=== PATIENT | female | born 1940 | race Caucasian/White ===

== ENCOUNTER 2021-11-18 11:25 | Emergency (ER) | payer MEDICARE, BC, SELFPAY ==
[2021-11-18 11:39] VITALS: BP 137/98; PULSE 77; RESP 16; TEMP 36.7; O2SAT 98
--- NOTE | 2021-11-18 12:00 | ED.EAR ---
HPI - Ear Problem General Chief complaint: Ear Stated complaint: rahel ear clogged Time Seen by Provider: 11/18/21 12:00 Source: patient Mode of arrival: ambulatory Limitations: no limitations History of Present Illness HPI Narrative: 81-year-old female presented for complaint of vertigo for 3 weeks, states it only occurs when she rolls in bed. She endorses she has chronic cerumen impaction and history of vertigo which occurs when she needs the earwax removed. She states she has her earwax removed about every 3 to 4 months by her PCP. She is visiting from [place] at this time. She currently denies any vertigo, vision changes, nausea, vomiting. MD Complaint: ear pain Related Data Home Medications Medication Instructions Recorded Confirmed dapagliflozin 5 mg tablet (Farxiga) 5 mg PO DAILY 11/18/21 11/18/21 hydrochlorothiazide 25 mg tablet 25 mg PO DAILY 11/18/21 11/18/21 latanoprost 0.005 % eye drops 1 drp EACH EYE DAILY 11/18/21 11/18/21 levothyroxine 200 mcg tablet 200 mcg PO DAILY 11/18/21 11/18/21 losartan 100 mg tablet 100 mg PO DAILY 11/18/21 11/18/21 sertraline 50 mg tablet 50 mg PO DAILY 11/18/21 11/18/21 Allergies Allergy/AdvReac Type Severity Reaction Status Date / Time No Known Allergies Allergy Verified 11/18/21 11:56 Review of Systems Review of Systems: CONSTITUTIONAL: Denies malaise, chills, or fever. EYES: Denies visual changes, redness, or discharge. ENT: Denies rhinorrhea, congestion, sinus pain, and sore throat. CARDIOVASCULAR: Denies chest pain, palpitations, or edema. RESPIRATORY: Denies cough or dyspnea. GASTROINTESTINAL: Denies abdominal pain, nausea, vomiting, diarrhea SKIN: Denies rash or itching. MUSCULOSKELETAL: Denies myalgia. NEUROLOGIC: Denies headache. All systems reviewed & are unremarkable except as noted in HPI and below PMFSH Comments At time of signature, agree with nursing past medical, surgical, social and family history. There is no relevant family history pertinent to the presenting complaint Exam Narrative: GENERAL: Well-appearing, well-nourished HEAD: Normocephalic EYES: conjunctivae clear ENT: Nares clear. Mucous membranes moist. Right TM unable to visualize due to cerumen impaction; Left TM pearly madera with normal light reflex, narrow canal; no tragal tenderness. Oropharynx not erythematous without lesions NECK: Supple. No lymphadenopathy CHEST: Clear to auscultation, breath sounds equal. HEART: Regular rate and rhythm. No murmur heard. SKIN: Warm, dry, no rash. NEURO: Alert and oriented x3. PSYCH: Normal mood and affect Course Course Emergency Course: Patient is aware of diagnosis, understands and agrees to treatment plan. Anticipatory guidance given. Patient agrees to follow-up as directed and is aware of reasons to seek care at the emergency department. Portions of this record may have been created with voice recognition software Level of Care: Express Care Visit Vital Signs Vital signs: Vital Signs Temperature 98.0 F 11/18/21 11:39 Pulse Rate 77 11/18/21 11:39 Respiratory Rate 16 11/18/21 11:39 Blood Pressure 137/98 H 11/18/21 11:39 Pulse Oximetry 98 11/18/21 11:39 Oxygen Delivery Room Air 11/18/21 11:39 Temperature 98.0 F 11/18/21 11:39 Pulse Rate 77 11/18/21 11:39 Respiratory Rate 16 11/18/21 11:39 Blood Pressure 137/98 H 11/18/21 11:39 Pulse Oximetry 98 11/18/21 11:39 Oxygen Delivery Room Air 11/18/21 11:39 Reviewed Procedures Ear Wax Removal Right Ear: Ear Wax Removal Date: 11/18/21 Cerumenolytic Used: other (Warm water and hydrogen peroxide) Results: Re-examined: cerumen removed completely TM Examination: TM(s) intact, normal appearance Ear Canal Exam: atraumatic Patient Tolerated Procedure: well and no complications Technique: ear canal irrigated and ear canal curetted Medical Decision Making MDM Narrative Medical decision making narrative: Patient
== END 2021-11-18 12:13 | disposition home or self-care (01) ==
PROVIDERS: Emergency Provider Nurse Practitioner Family
DX: H61.21 Impacted cerumen, right ear (principal); I10 Essential (primary) hypertension; E11.9 Type 2 diabetes mellitus without complications; E03.9 Hypothyroidism, unspecified; F32.A Depression, unspecified
CPT/HCPCS: 69210; 99202; G0463

== ENCOUNTER 2023-04-20 08:04 | Emergency (ER) | payer MEDICARE, BC, SELFPAY ==
--- NOTE | 2023-04-20 08:12 | ED.URI ---
HPI - URI/Sore Throat General Chief Complaint: Upper Respiratory Infection Stated Complaint: Sinus Time Seen by Provider: 04/20/23 08:20 Source: patient and RN notes reviewed Mode of arrival: ambulatory Limitations: no limitations History of Present Illness HPI Narrative: 82-year-old female presents with concern for cough, sinus drainage. She reports started on Monday, she was recently at a wedding. She reports some transient sweats, feeling feverish earlier in the week. She reports her sister has similar symptoms. She is traveling from out of [facility]. MD elicited complaint: cough Related Data Home Medications Medication Instructions Recorded Confirmed hydrochlorothiazide 25 mg tablet 25 mg PO DAILY 11/18/21 04/20/23 latanoprost 0.005 % eye drops 1 drp EACH EYE DAILY 11/18/21 04/20/23 levothyroxine 200 mcg tablet 200 mcg PO DAILY 11/18/21 04/20/23 losartan 100 mg tablet 100 mg PO DAILY 11/18/21 04/20/23 sertraline 50 mg tablet 50 mg PO DAILY 11/18/21 04/20/23 Allergies Allergy/AdvReac Type Severity Reaction Status Date / Time No Known Allergies Allergy Verified 04/20/23 08:15 Review of Systems Review of Systems: CONSTITUTIONAL: Reports malaise, chills, sweats EYES: Denies visual changes, redness, or discharge. ENT: Reports rhinorrhea. Denies congestion, sinus pain, otalgia and sore throat. CARDIOVASCULAR: Denies chest pain, palpitations, or edema. RESPIRATORY: Reports cough. Denies dyspnea. GASTROINTESTINAL: Denies abdominal pain, nausea, vomiting, diarrhea SKIN: Denies rash or itching. MUSCULOSKELETAL: Denies myalgia. NEUROLOGIC: Denies headache. All systems reviewed & are unremarkable except as noted in HPI and below PMFSH Comments At time of signature, agree with nursing past medical, surgical, social and family history. There is no relevant family history pertinent to the presenting complaint Exam Narrative: GENERAL: Well-appearing, well-nourished, and in no acute distress. HEAD: Normocephalic EYES: PERRLA, conjunctivae clear ENT: Nares clear, turbinates edematous and erythematous, clear discharge. Mucous membranes moist. TM pearly madera with dull light reflex bilaterally; no tragal tenderness. Oropharynx not erythematous without lesions. Tonsils not enlarged and without exudate, no drooling, no hoarseness, no trismus, uvula midline. NECK: Supple. No lymphadenopathy CHEST: Clear to auscultation, breath sounds equal. No wheezing, rhonchi, rales, or stridor. No respiratory distress, speaks in full sentences. HEART: Regular rate and rhythm. No murmur heard. SKIN: Warm, dry, no rash. NEURO: Alert and oriented x3. PSYCH: Normal mood and affect Course Course Emergency Course: Patient is aware of diagnosis, understands and agrees to treatment plan. Anticipatory guidance given. Patient agrees to follow-up as directed and is aware of reasons to seek care at the emergency department. Portions of this record may have been created with voice recognition software Level of Care: Express Care Visit Vital Signs Vital signs: Reviewed. MDM - URI/Sore Throat MDM Narrative Medical decision making narrative: Differential diagnosis considered: Uri[place]ui virus, strep pharyngitis, allergic rhinitis, upper respiratory tract infection, sinusitis, rhinosinusitis, nasopharyngitis. viral pharyngitis, otitis media, otitis externa, pneumonia, bronchitis, viral cough syndrome, viral syndrome, and influenza. Exam findings show no acute concerns or changes; patient is non-toxic appearing and is in no distress. Patient is appropriate for outpatient treatment and follow-up. Lab Data Attestation: I reviewed the patient's lab results. Critical Care Time Critical Care Time Critical Care Time: No Discharge Plan Discharge Clinical Impression: COVID Patient Disposition: Home, Self-Care Condition: Stable Instructions: How to Recover from COVID-19 at Home (ED) Additional Instructions: Your rapid COVID test is posi
[2023-04-20 08:17] VITALS: BP 118/103; PULSE 77; RESP 16; TEMP 37.1; O2SAT 99
== END 2023-04-20 08:57 | disposition home or self-care (01) ==
PROVIDERS: Emergency Provider Nurse Practitioner
DX: U07.1 COVID-19 (principal); I10 Essential (primary) hypertension; E11.9 Type 2 diabetes mellitus without complications; E03.9 Hypothyroidism, unspecified; F32.A Depression, unspecified
CPT/HCPCS: 87426; 99213; C9803; G0463

== ENCOUNTER 2025-02-10 08:09 | Emergency (ER) | payer MEDICARE, BC, SELFPAY ==
[2025-02-10 08:20] VITALS: BP 163/71; PULSE 68; RESP 20; TEMP 36.6; O2SAT 95
--- NOTE | 2025-02-10 08:20 | ED.WOUNDLAC ---
HPI - Wound/Laceration General Chief Complaint: Skin/Abscess/Foreign Body Stated Complaint: tick on right side Time Seen by Provider: 02/10/25 08:25 Source: patient Mode of arrival: ambulatory Limitations: no limitations History of Present Illness HPI narrative: 84 y/o female presented for c/o possible tick bite to right abdomen. First noticed a black spot to the right upper abdomen 2 days ago. States she and her family attempted to remove it without success. Says [place] noticing it. Denies streaking, itching, pain, or drainage from the site. Related Data Home Medications ?Medication ?Instructions ?Recorded ?Confirmed ?Last Taken ?Type hydrochlorothiazide 25 mg tablet 25 mg PO DAILY 11/18/21 04/20/23 Unknown History latanoprost 0.005 % eye drops 1 drp EACH EYE DAILY 11/18/21 04/20/23 Unknown History levothyroxine 200 mcg tablet 200 mcg PO DAILY 11/18/21 04/20/23 Unknown History losartan 100 mg tablet 100 mg PO DAILY 11/18/21 04/20/23 Unknown History sertraline 50 mg tablet 50 mg PO DAILY 11/18/21 04/20/23 Unknown History Allergies Allergy/AdvReac Type Severity Reaction Status Date / Time No Known Allergies Allergy Verified 02/10/25 08:37 Review of Systems Review of Systems: CONSTITUTIONAL: Denies body aches, fever, chills, or sweats. EYES: Denies visual changes, redness, or discharge. ENT: Denies rhinorrhea, congestion CARDIOVASCULAR: Denies chest pain, palpitations, or edema. RESPIRATORY: Denies cough or dyspnea. GASTROINTESTINAL: Denies abdominal pain, nausea, vomiting, or diarrhea. SKIN: reports skin lesion right abdomen MUSCULOSKELETAL: Denies back pain, joint pain, or myalgia. NEUROLOGIC: Denies headache, numbness, tingling, or weakness. PMFSH Comments At time of signature, I have reviewed and agree with nursing past medical, surgical, social and family history unless otherwise noted. Please see nursing chart for further information. There is no relevant family history pertinent to the presenting complaint Exam Narrative: GENERAL: Well-appearing HEAD: Normocephalic, atraumatic. EYES: conjunctivae clear, and EOMI. ENT: Mucous membranes moist. Oropharynx without edema, erythema or lesions. NECK: Supple. No lymphadenopathy CHEST: Clear to auscultation. HEART: Regular rate and rhythm. SKIN: Warm, dry. Right upper abdomen with pinpoint black area with surrounding mild erythema and firmness. c/w comedone not a tick. Nontender, no fluctuance. NEURO: Alert and oriented x3. Course Course Emergency Course: Patient is aware of diagnosis, understands and agrees to treatment plan. Anticipatory guidance given. Patient agrees to follow-up as directed and is aware of reasons to seek care at the emergency department. Portions of this record may have been created with voice recognition software Level of Care: Express Care Visit Vital Signs Vital signs: Vital Signs Temperature 97.8 F 02/10/25 08:20 Pulse Rate 68 02/10/25 08:20 Respiratory Rate 20 02/10/25 08:20 Blood Pressure 163/71 H 02/10/25 08:20 Pulse Oximetry 95 02/10/25 08:20 Oxygen Delivery Room Air 02/10/25 08:20 Temperature 97.8 F 02/10/25 08:20 Pulse Rate 68 02/10/25 08:20 Respiratory Rate 20 02/10/25 08:20 Blood Pressure 163/71 H 02/10/25 08:20 Pulse Oximetry 95 02/10/25 08:20 Oxygen Delivery Room Air 02/10/25 08:20 Reviewed Procedures Abscess I/D abdomen: Local Anesthetic: lidocaine 1% Amount of anesthesia used (mL): 1 Technique: needle aspiration (#18g) I&D Results: Blood and Other (thick dark core) Abcess I&D Additional Comments: Site cleansed with alcohol, no FB noted. Site anesthetized. Using #18g needle, able to extract a comedone core. Mild swelling and erythema surrounding the site, no fluctuance or purulent drainage. MDM - Wound/Laceration MDM Narrative Medical decision making narrative: Discussed physical exam findings and reviewed procedure with pt. Tolerated I&D, no FB/tick. No fluctuance or drainage. Will send abx. Advised supportive measures and signs/symptoms to go to the ER. Pt is appropriate for outpt treatment and f/u. Differential Diagnosis Differential diagnosis: Likely abscess and other (foreign body, Viral exanthema, contact dermatitis, allergic dermatitis, eczema, urticaria, insect bites, impetigo, tinea, folliculitis) Discharge Plan Discharge Clinical Impression: [place] Patient Disposition: Home Condition: Stable Instructions: Antibiotic Form, Abscess (ED) Additional Instructions: You may shower and Cleanse site with warm soapy water Warm compresses at least 4 times a day to the site to help expel any additional drainage. Keep your wound covered while draining Ok to apply neosporin to the area Take antibiotic as directed Tylenol every 8 hours for pain as needed Follow up with your primary care physician in 3 days for a wound check. Go to the Emergency Department immediately if you develop any of the following symptoms: Fevers, Increased redness, pain, or swelling or any other concerns Patient Language: Croatian Prescriptions: New doxycycline hyclate 100 mg tablet 100 mg PO BID 7 Days Qty: 14 0RF No Action levothyroxine 200 mcg tablet 200 mcg PO DAILY hydrochlorothiazide 25 mg tablet 25 mg PO DAILY losartan 100 mg tablet 100 mg PO DAILY sertraline 50 mg tablet 50 mg PO DAILY latanoprost 0.005 % drops 1 drp EACH EYE DAILY ipratropium bromide 21 mcg (0.03 %) spray,non-aerosol 2 spray NASAL TID PRN (Reason: nasal drainage) Qty: 30 0RF Rx Instructions: administer into each nostril Follow-up/Referrals: UNKNOWN,DOCTOR [Primary Care Provider] - Time of Disposition: 09:05
== END 2025-02-10 09:10 | disposition home or self-care (01) ==
PROVIDERS: Emergency Provider Nurse Practitioner Family
DX: L70.0 Acne vulgaris (principal)
CPT/HCPCS: 99213; G0463; J2003